=== PATIENT | female | born 1965 | race Caucasian/White ===

== ENCOUNTER 2017-02-13 11:16 | Emergency (ER) | payer BC, OTHER ==
--- NOTE | 2017-02-13 11:38 | UC ---
Complaint Female HPI - HPI Summary HPI Summary: pain burning urgency and blood in urine this morning---no fevers chills night sweats or back pain - History Of Current Complaint Chief Complaint: UCGU Stated Complaint: URINARY ISSUE Time Seen by Provider: 02/13/17 11:35 Hx Obtained From: Patient ?: No Onset/Duration: Sudden Onset, Lasting Days - 1, Still Present Timing: Constant Severity Initially: Moderate Severity Currently: Moderate Pain Intensity: 5 Pain Scale Used: 0-10 Numeric Character: Burning Aggravating Factor(s): Urination Alleviating Factor(s): Nothing Associated Signs And Symptoms: Positive: Negative - Allergies/Home Medications Allergies/Adverse Reactions: Allergies Allergy/AdvReac Type Severity Reaction Status Date / Time Gadolinium Allergy Intermediate Hives Verified 02/13/17 11:43 ,tickle in throat Adhesive Tape Allergy ITCHINESS Verified 02/13/17 11:43 PMH/Surg Hx/FS Hx/Imm Hx Previously Healthy: Yes Endocrine History Of: Denies: Diabetes Cardiovascular History Of: Denies: Hypertension, Pacemaker/ICD GI/ History Of: Denies: Renal Disease - Surgical History Surgical History: Yes Surgery Procedure, Year, and Place: WISDOM TEETH REMOVAL,RT KNEE LIGAMENT SURGERY, NEUROMA REMOVED FROM RT FOOT, - Family History Known Family History: Positive: None Family History: no reported cardiovascular illness in family lineage - Social History Occupation: Employed Full-time Lives: With Family Alcohol Use: None Substance Use Type: None Smoking Status (MU): Never Smoked Tobacco Review of Systems Constitutional: Negative Skin: Negative Eyes: Negative ENT: Negative Respiratory: Negative Cardiovascular: Negative Gastrointestinal: Negative Genitourinary: Negative, Hematuria, Frequency, Urgency Motor: Negative Neurovascular: Negative Musculoskeletal: Negative Neurological: Negative Psychological: Negative All Other Systems Reviewed And Are Negative: Yes Physical Exam Triage Information Reviewed: Yes Appearance: Well-Appearing, No Pain Distress, Well-Nourished Eye Exam: Normal Eyes: Positive: Conjunctiva Clear ENT Exam: Normal ENT: Positive: Normal ENT inspection, Hearing grossly normal. Negative: Nasal congestion, Nasal drainage, Trismus, Muffled/hoarse voice Dental Exam: Normal Neck exam: Normal Neck: Positive: Supple, Nontender Respiratory Exam: Normal Respiratory: Positive: Chest non-tender, No respiratory distress, No accessory muscle use Cardiovascular Exam: Normal Cardiovascular: Positive: RRR, Pulses Normal, Brisk Capillary Refill Abdominal Exam: Normal Abdomen Description: Positive: Nontender, Soft Musculoskeletal Exam: Normal Musculoskeletal: Positive: Strength Intact, ROM Intact, No Edema Neurological Exam: Normal Neurological: Positive: Alert Psychological Exam: Normal Skin Exam: Normal Complaint Female Dx - Course Course Of Treatment: icrease fluids, macrobid, azo prn, follow with pcp - Differential Dx/Diagnosis Differential Diagnosis/HQI/PQRI: Sexually Transmitted Disease, Ureteral Stone, Urinary Tract Infection Provider Diagnoses: UTI Discharge - Discharge Plan Condition: Stable Disposition: HOME Prescriptions: Nitrofurantoin Monohyd Macro [Macrobid] 100 mg PO BID #20 cap Patient Education Materials: Phenazopyridine (By mouth), Urinary Tract Infection in Women (ED) Referrals: Liliam Fonseca MD [Primary Care Provider] - If Needed
[2017-02-13 11:42] VITALS: BP 137/73
== END 2017-02-13 12:03 | disposition home or self-care (01) ==
LOC: UCEAST 11:16
DX: N39.0 Urinary tract infection, site not specified (principal); Z88.8 Allergy status to other drugs, medicaments and biological substances; Z91.048 Other nonmedicinal substance allergy status
CPT/HCPCS: 81003; 87077; 87086; 87186; 99212; G0463

== ENCOUNTER 2019-05-29 19:15 | Emergency (ER) | payer BC, OTHER ==
[2019-05-29 19:28] VITALS: BP 139/73
[2019-05-29] MEDS ORDERED: Ibuprofen TAB* 400 MG PO ONE (19:38)
--- NOTE | 2019-05-29 19:49 | UC ---
Eye Complaint HPI - HPI Summary HPI Summary: This patient is a 53-year-old female who presents to the urgent care with chief complaint of pain behind the left eyelid. She reports that the pain worsened when she moves her eye. She denies any blurred vision, denies any visual loss, no Visual changes, no flashing lights in in the eye, no photophobia, no floaters , no headache, no nausea and vomiting, no patchy or blind spots, no VISION. She reports that the pain started about 2 days ago and the pain is relieved by ibuprofen 400 mg. The pain has been intermittent and she reports no history of eye pain. She has no other complaints. - History of Current Complaint Chief Complaint: UCEye Stated Complaint: PAIN BEHIND EYE Time Seen by Provider: 05/29/19 19:30 Hx Obtained From: Patient Hx Last Menstrual Period: 01/31/17 Onset/Duration: Sudden Onset Timing: Intermittent Episode Lasting Pain Intensity: 10 - Risk Factors Penetrating Injury Risk Factor: Negative Globe Rupture Risk Factors: Negative Acute Glaucoma Risk Factors: Eye Inflammation Optic Artery Occlusion Risk Factors: Negative - Allergies/Home Medications Allergies/Adverse Reactions: Allergies Allergy/AdvReac Type Severity Reaction Status Date / Time Gadolinium-Containing Allergy Blisters Verified 05/29/19 19:30 Contrast Medi naproxen [From Naprosyn] Allergy Unknown Verified 05/29/19 19:30 Reaction Details Home Medications: Home Medications NK [No Home Medications Reported] 05/29/19 [History Confirmed 05/29/19] PMH/Surg Hx/FS Hx/Imm Hx Previously Healthy: Yes - Surgical History Surgical History: Yes Surgery Procedure, Year, and Place: WISDOM TEETH REMOVAL,RT KNEE LIGAMENT SURGERY, NEUROMA REMOVED FROM RT FOOT, - Family History Known Family History: Positive: None, Non-Contributory Family History: no reported cardiovascular illness in family lineage - Social History Alcohol Use: Occasionally Substance Use Type: None Smoking Status (MU): Never Smoked Tobacco - Immunization History Most Recent Influenza Vaccination: none Review of Systems All Other Systems Reviewed And Are Negative: Yes Constitutional: Positive: Negative Skin: Positive: Negative Eyes: Positive: Eye Redness, Other - Pain behind the left eye ENT: Positive: Negative Respiratory: Positive: Negative Cardiovascular: Positive: Negative Gastrointestinal: Positive: Negative Genitourinary: Positive: Negative Motor: Positive: Negative Neurovascular: Positive: Negative Musculoskeletal: Positive: Negative Neurological: Positive: Negative Psychological: Positive: Negative Is Patient Immunocompromised?: No Physical Exam - Summary Physical Exam Summary: VITAL SIGNS: Reviewed. GENERAL: Patient is a well developed and nourished female who is lying comfortably in the stretcher. Patient is not in any acute respiratory distress. HEAD AND FACE: No signs of trauma. No ecchymosis, hematomas or skull depressions. No sinus tenderness. EYES: PERRLA, EOMI x 2, positive injected conjunctiva, no nystagmus. EARS: Hearing grossly intact. Ear canals and tympanic membranes are within normal limits. MOUTH: Oropharynx within normal limits. NECK: Supple, trachea is midline, no adenopathy, no JVD, no carotid bruit, no c- spine tenderness, neck with full ROM. CHEST: Symmetric, no tenderness at palpation LUNGS: Clear to auscultation bilaterally. No wheezing or crackles. CVS: Regular rate and rhythm, S1 and S2 present, no murmurs or gallops appreciated. ABDOMEN: Soft, non-tender. No signs of distention. No rebound no guarding, and no masses palpated. Bowel sounds are normal. EXTREMITIES: FROM in all major joints, no edema, no cyanosis or clubbing. NEURO: Alert and oriented x 3. No acute neurological deficits. Speech is normal and follows commands. SKIN: Dry and warm Triage Information Reviewed: Yes Appearance: Well-Appearing Vital Signs: Initial Vital Signs Temp 98.8 F 05/29/19 19:24 Pulse 64 05/29/19 19:24 Resp 16 05/29/19 19:24 BP 139/73 05/29/19 19:24 Pulse Ox 100 05/29/19 19:24 Vital Signs Reviewed: Yes Eye Complaint Course/Dx - Course Course Of Treatment: With in the history of present illness we will also an optic neuritis, acute angle glaucoma, will be neuritis, or iritis. However at this still be possible. Therefore I consulted Dr. Ramírez from ophthalmology who has no further recommendations at this time and he will see the patient tomorrow morning. The patient was given ibuprofen for the pain and she reports symptoms improved. I recommended the patient that if she develops any nausea vomiting, headache, any visual changes or visual loss or poor vision, any halos around lights, any blind spots or tunneling the patient the patient should immediately go to the emergency department for further workup and management. The patient understands and agrees. - Differential Dx/Diagnosis Provider Diagnosis: Eye pain Discharge - Sign-Out/Discharge Documenting (check all that apply): Patient Departure All imaging exams completed and their final reports reviewed: No Studies - Discharge Plan Condition: Stable Disposition: HOME Patient Education Materials: Eye Pain (ED) Referrals: Liliam Fonseca MD [Primary Care Provider] - Oc Ramírez MD [Medical Doctor] - - Billing Disposition and Condition Condition: STABLE Disposition: Home
== END 2019-05-29 20:00 | disposition home or self-care (01) ==
LOC: UCEAST 19:15
DX: H57.10 Ocular pain, unspecified eye (principal)
CPT/HCPCS: 99212; A9270-GY; G0463

== ENCOUNTER 2019-05-31 12:28 | Emergency (ER) | payer BC ==
--- NOTE | 2019-05-31 13:22 | ED ---
Throat Pain/Nasal Congestion - HPI Summary HPI Summary: A 53 y/o female presents to [facility] with a chief complaint of left eye double vision since this morning after having eye pain for 5 days that has improved. Pt denies any fever, chills, erythema of eyes, sore throat, CP, SOB, cough, abdominal pain, dysuria, hematuria, myalgia, edema, or dizziness. She says that she used to have a headache but does not now. At triage the patient rated her pain as a 0/[address] 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 She denies a Hx or FHx of blood clots. She denies a Hx of headaches or migraines. She said that she had a tick exposure in Spring of this year. She says that her vision is fine when her right eye is closed, but she does admit to some nausea and vomiting yesterday. She said that she had some itchy, red rashes on the back of both knees, was taking vitamins that contained calcium, zinc, magnesium and iron, that has alleviated her rash. - History of Current Complaint Chief Complaint: EDEyeProblem Time Seen by Provider: 05/31/19 13:00 Hx Obtained From: Patient Onset/Duration: Sudden Onset, Lasting Days, Still Present Severity: Mild Associated Signs And Symptoms: Positive: Negative Cough: None - Allergies/Home Medications Allergies/Adverse Reactions: Allergies Allergy/AdvReac Type Severity Reaction Status Date / Time Gadolinium-Containing Allergy Severe Hives Verified 05/31/19 14:26 Contrast Medi naproxen [From Naprosyn] Allergy Unknown Verified 05/31/19 14:26 Reaction Details PMH/Surg Hx/FS Hx/Imm Hx Endocrine/Hematology History: Denies: Hx Diabetes Cardiovascular History: Denies: Hx Hypertension, Hx Pacemaker/ICD Respiratory History: Reports: Other Respiratory Problems/Disorders - MILD PNEUMONIA AT AGE 10 History: Denies: Hx Dialysis, Hx Renal Disease Musculoskeletal History: Reports: Other Musculoskeletal History - SPINAL CURVATURE WHEN WAS YOUNGER Sensory History: Reports: Hx Contacts or Glasses - CONTACTS Denies: Hx Hearing Aid Opthamlomology History: Reports: Hx Contacts or Glasses - CONTACTS Psychiatric History: Denies: Hx Panic Disorder - Surgical History Surgery Procedure, Year, and Place: WISDOM TEETH REMOVAL,RT KNEE LIGAMENT SURGERY, NEUROMA REMOVED FROM RT FOOT, Hx Anesthesia Reactions: No Infectious Disease History: No Infectious Disease History: Denies: Traveled Outside the [place] in Last 30 Days - Family History Known Family History: Negative: Cardiac Disease Family History: no reported cardiovascular illness in family lineage - Social History Alcohol Use: Occasionally Substance Use Type: Reports: None Smoking Status (MU): Never Smoked Tobacco Review of Systems Negative: Fever, Chills Positive: Other - positive: left eye double vision, eye pain. Negative: Erythema Negative: Sore Throat Negative: Chest Pain Negative: Shortness Of Breath, Cough Negative: Abdominal Pain, Vomiting, Nausea Negative: dysuria, hematuria Negative: Myalgia, Edema Positive: Rash Neurological: Negative - dizziness All Other Systems Reviewed And Are Negative: Yes Physical Exam - Summary Physical Exam Summary: Constitutional: Well-developed, Well-nourished, Alert. (-) Distressed Skin: Warm, Dry HENT: Normocephalic; Atraumatic Eyes: Conjunctiva normal, There is no conjunctival injection Neck: Musculoskeletal ROM normal neck. (-) JVD, (-) Stridor, (-) Tracheal deviation Cardio: Rhythm regular, rate normal, Heart sounds normal; Intact distal pulses; The pedal pulses are 2+ and symmetric. Radial pulses are 2+ and symmetric. (-) Murmur Pulmonary/Chest wall: Effort normal. (-) Respiratory distress, (-) Wheezes, (-) Rales Abd: Soft, (-) tenderness, (-) Distension, (-) Guarding, (-) Rebound Musculoskeletal: (-) Edema Lymph: (-) Cervical adenopathy Neuro: Alert, Oriented x3, she appears to have a left lateral rectus palsy. Psych: Mood and affect Normal Triage Information Reviewed: Yes Vital Signs On Initial Exam: Initial Vitals Temp Pulse Resp BP Pulse Ox 98.4 F 67 18 169/100 100 05/31/19 12:30 05/31/19 12:30 05/31/19 12:30 05/31/19 12:30 05/31/19 12:30 Vital Signs Reviewed: Yes Procedures - Lumbar Puncture Midline Position: Lateral Decubitus Anesthesia Used: 1.0% Lido Spinal Needle Used: 22 Gauge Lumbar Puncture Note: Opening pressure is 10cm of water, fluid was clear, 4mls of clear fluid, used 5mls of 1% lido, 22 gauge 3.5 inch needle Diagnostics - Vital Signs Vital Signs Temp Pulse Resp BP Pulse Ox 05/31/19 12:30 98.4 F 67 18 169/100 100 - Laboratory Result Diagrams: 05/31/19 13:20 05/31/19 13:27 Lab Statement: Any lab studies that have been ordered have been reviewed, and results considered in the medical decision making process. - CT Brain MRI CT Interpretation Completed By: Radiologist Summary of CT Findings: 1. The left perioptic nerve sheath is slightly asymmetrically distended. If there is. clinical concern for optic perineuritis , an orbital MRI with contrast is recommended. Otherwise, the orbital contents are unremarkable. 2. No acute intracranial normality. 3. 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 ED physician has reviewed this imaging report. Re-Evaluation - Re-Evaluation First Eval Re-Evaluation Time: 16:24 Change: Unchanged Comment: She reports double vision since this morning. She also says that she had intermittent pain 4 days ago, but has been constant for two days right above her left eye. Her sister has a Hx of MS. Second Eval Re-Evaluation Time: 17:26 Change: Unchanged Comment: Lumbar puncture procedure Third Eval Re-Evaluation Time: 20:39 EENT Course/Dx - Course Course Of Treatment: A 53 y/o female presents to [facility] with a chief complaint of left eye double vision since this morning after having eye pain for 5 days that has improved. Pt denies any fever, chills, erythema of eyes, sore throat, CP, SOB, cough, abdominal pain, dysuria, hematuria, myalgia, edema, or dizziness. She says that she used to have a headache but does not now. At triage the patient rated her pain as a 0/[address] 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 She denies a Hx or FHx of blood clots. She denies a Hx of headaches or migraines. She said that she had a tick exposure in Spring of this year. She says that her vision is fine when her right eye is closed, but she does admit to some nausea and vomiting yesterday. She said that she had some itchy, red rashes on the back of both knees, was taking vitamins that contained calcium, zinc, magnesium and iron, that has alleviated her rash. The physical exam revealed that she appears to have a left lateral rectus palsy. There is no conjunctival injection. Discussed case with Dr. Ramírez from ophthalmology who is recommending getting chemistry, Lyme testing as well as MRI of the brain. He reported normal intraocular pressures in the office. Brain MRI impression: 1. The left perioptic nerve sheath is slightly asymmetrically distended. If there is. clinical concern for optic perineuritis , an orbital MRI with contrast is recommended. Otherwise, the orbital contents are unremarkable. 2. No acute intracranial normality. 3. 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 Lumbar puncture was done. See procedure note. CSF results are WNL. Discussed case with Dr. Castillo, who saw the patient in the ED, and has recommended having the patient follow up with him in one week. The patient will be discharged and is agreeable with this plan. - Diagnoses Provider Diagnoses: 6th nerve palsy, Diplopia - Provider Notifications Discussed Care Of Patient With: Oc Ramírez Time Discussed With Above Provider: 13:12 Instructed by Provider To: Other - Discussed case with Dr. Ramírez from ophthalmology who is recommending getting chemistry, Lyme testing as well as MRI of the brain. He reported normal intraocular pressures in the office. Discharge - Sign-Out/Discharge Documenting (check all that apply): Patient Departure - DC Patient Received Moderate/Deep Sedation with Procedure: No - Discharge Plan Condition: Stable Disposition: HOME Patient Education Materials: Diplopia (ED) Referrals: Liliam Fonseca MD [Primary Care Provider] - (2-3 days) Neil Castillo MD [Medical Doctor] - 1 Week Additional Instructions: RETURN TO THE EMERGENCY DEPARTMENT FOR CHANGING OR WORSENING SYMPTOMS - Attestation Statements Document Initiated by Scribe: Yes Documenting Scribe: Roni Cardenas Provider For Whom Scribe is Documenting (Include Credential): Say Mendez MD Scribe Attestation: Roni Goodwin, scribed for Say Mendez MD on 05/31/19 at 2222. Status of Scribe Document: Ready
[2019-05-31 13:35] LABS: Hematocrit 43 % (35-47); Hemoglobin 14.7 g/dL (12.0-16.0); Mean Corpuscular HGB Conc 34 g/dL (31-36); Mean Corpuscular Hemoglobin 31 pg (27-31); Mean Corpuscular Volume 91 fL (80-97); Mean Platelet Volume 9.4 fL (7.4-10.4); Platelet Count 173 10^3/uL (150-450); Red Blood Count 4.76 10^6 /uL (3.70-4.87); Red Cell Distribution Width 13 % (10-15); White Blood Count 8.2 10^3/uL (3.5-10.8)
[2019-05-31 13:55] LABS: Albumin 4.4 g/dL (3.2-5.2); Albumin/Globulin Ratio 1.6 (1-3); BUN/Creatinine Ratio 10.9 (8-20); Calcium 9.9 mg/dL (8.6-10.3); EGFR African American 77.9 (>60); EGFR Non-African American 64.4 (>60); Globulin 2.7 g/dL (2-4); Total Bilirubin 0.7 mg/dL (0.2-1.0); Total Protein 7.1 g/dL (6.4-8.9)
[2019-05-31 14:45] LABS: TSH (Thyroid Stimulating Horm) 2.78 mcIU/mL (0.34-5.60)
[2019-05-31 14:48] LABS: Free T4 0.97 ng/dL (0.61-1.12)
--- NOTE | 2019-05-31 15:53 | CONS ---
CONSULTATION REPORT: DATE OF CONSULT: 05/31/19 PATIENT OF: Dr. Ramírez and Dr. Mendez and Dr. Liliam Fonseca. HISTORY OF PRESENT ILLNESS: This is a 53-year-old previously healthy woman, whose sister has MS for the past 19 years, who presents with left eye pain for the past 5 days which has improved now. The eye pain was associated with worsening with eye movement and it spread to involve the left side of her face with some nausea, but this has improved and she no longer has nausea. She has no history of headaches or migraines. Since this morning, she has had double vision, worse looking to the left. She has no fever, chills, sore throat, shortness of breath, abdominal pain, hematuria. She had a tick bite several months ago, which she removed. She has had no bull's-eye rash, but has rash behind her knees bilaterally. PAST MEDICAL HISTORY: She has no medical problems. PAST SURGICAL HISTORY: She is status post wisdom teeth removal, right knee ligament surgery, and a neuroma removed from her right foot as well as a C- section. MEDICATIONS: She is on no medicines. ALLERGIES: Of note, she is allergic to MRI CONTRAST DYE with hives, when she had an MRI scan of her foot for plantar fasciitis. Her only other allergy is to NAPROXEN. SOCIAL HISTORY: She does not smoke or use illicit drugs. PHYSICAL EXAM: Temperature 98.4, pulse 67, respirations 18, blood pressure 169/ 100. She is alert and oriented with normal speech and comprehension. Cranial nerves II through XII were intact other than she had a left sixth nerve palsy. Vision was intact in both eyes. Discs appeared sharp to me. Motor exam revealed normal tone, strength, coordination, finger to nose. Sensation intact to light touch. Reflexes were 3+ with both of the arms and legs with ___ ___ being present bilaterally. Toes were downgoing. Neck was supple without Lhermitte sign. Chest: Clear. Cardiovascular: Regular rate and rhythm. Abdomen is soft with positive bowel sounds. IMPRESSION AND PLAN: I discussed with her and Dr. Mendez that she had a sixth nerve palsy causing her double vision, but that her eye pain, it is possible that she had a mild retrobulbar optic neuritis, which was Dr. Ramírez's concern as well initially. She needs an MRI scan, which unfortunately we cannot get this contrast given her allergy. We discussed with her that the MRI scan with contrast would pick remover recent demyelinating lesions, but the MRI scan without contrast could show whether she has had prior asymptomatic issues and it is conceivable that she has demyelinating disease like her sister. She may need a spinal tap later and blood work has been sent. I think we need to wait for the MRI scan to send further blood work. It is possible that she could have something such as increased intracranial pressure causing nerve palsy, but I think this is unlikely and it is possible that she has something like myasthenia gravis. Depending on what the MRI scan shows and what further workup shows, we may pursue this diagnosis further. Thank you for sharing her case. [id number]/[facility] #: [id number] BLAIRE
[2019-05-31] MEDS ORDERED: Lidocaine 1% MPF ** 5 ML VIAL ONE (17:51)
[2019-05-31 18:19] LABS: Body Fluid Source Cerebral Spinal
[2019-05-31 18:36] LABS: CSF Glucose 67 mg/dL (40-70)
[2019-05-31] MEDS ORDERED: Lidocaine 1% MPF ** 5 ML VIAL INJ ONE (19:28)
[2019-05-31 20:37] LABS: C Reactive Protein 1.32 mg/L (<8.01)
[2019-05-31 20:47] VITALS: BP 154/93
[2019-05-31 21:52] LABS: Erythrocyte Sed Rate 5 mm/Hr (0-29)
--- NOTE | 2019-06-01 13:26 | EEG ---
VISUAL EVOKED POTENTIAL STUDY: DATE OF STUDY: PATIENT OF: Dr. Mendez, Dr. Castillo, Dr. Ramírez. CLINICAL PROBLEM: This is a 53-year-old woman being evaluated for eye pain and pain on movement of t he eye. She has had onset of double vision as well. She is on no medications. REPORT: In the left eye, P100 has normal latency and morphology. In the right eye, P100 has normal latency and morphology. No significant differences between the right and left eye are noted. CLINICAL IMPRESSION: This visual evoked response is within normal limits. [id number]/[facility] #: [id number]
[2019-06-02 14:59] LABS: CSF VDRL Negative (Negative)
== END 2019-05-31 20:46 | disposition home or self-care (01) ==
LOC: ED 12:28
DX: H49.20 Sixth [abducent] nerve palsy, unspecified eye (principal); H53.2 Diplopia; Z88.8 Allergy status to other drugs, medicaments and biological substances; Z91.041 Radiographic dye allergy status
CPT/HCPCS: 36415; 62270; 70551; 80053; 82945; 83519; 83916; 84157; 84439; 84443; 85027; 85652; 86038; 86140; 86592; 86618; 87070; 87205; 89051; 95930; 96372; 99283